=== PATIENT | male | born 1965 | race Caucasian/White ===

== ENCOUNTER 2017-01-04 15:03 | Inpatient (IN) | payer OTHER ==
[2017-01-04 16:47] VITALS: BMI 28.0
--- NOTE | 2017-01-04 18:50 | HP ---
COWS - Scale Resting Pulse: 0= [place] 80 or Below Sweatin= Chills/Flushing Restless Observation: 1= Difficult to Sit Still Pupil Size: 1= Pupils >than Normal Bone or Joint Aches: 2= Severe Diffuse Aches Runny Nose/ Eye Tearin= Runny Nose/Eyes GI Upset > 30mins: 1= Stomach Cramp Tremor Observation: 1= Tremor [place], Not Seen Yawning Observation: 1= 1-2x During Session Anxiety or Irritability: 2=Irritable/Anxious Goose Flesh Skin: 3=Piloerection COWS Score: 15 Admission ROS S - HPI Chief Complaint: withdrawal sx Allergies/Adverse Reactions: Allergies Allergy/AdvReac Type Severity Reaction Status Date / Time fish derived [Fish derived] Allergy Mild Verified 01/04/17 18:20 No Known Drug Allergies Allergy Verified 01/04/17 18:20 mushroom AdvReac Intermediate Vomiting Verified 01/04/17 18:20 History of Present Illness: 51 years old male with long history of opiate and nicotine dependence has asthma and bipolar ii is admitted to detox Exam Limitations: No Limitations - Ebola screening Have you traveled outside of the country in the last 21 days: No Have you had contact with anyone from an Ebola affected area: No Have you been sick,other than usual withdrawal symptoms: No Do you have a fever: No - Review of Systems Constitutional: Chills, Changes in sleep, Weight Stable EENT: reports: No Symptoms Reported Respiratory: reports: No Symptoms reported Cardiac: reports: No Symptoms Reported GI: reports: Nausea, Poor Fluid Intake, Indigestion, Abdominal cramping : reports: No Symptoms Reported Musculoskeletal: reports: Back Pain, Joint Pain, Muscle Pain, Neck Pain Integumentary: reports: Change in Color (inner elbows) Neuro: reports: Tremors Endocrine: reports: No Symptoms Reported Hematology: reports: No Symptoms Reported Psychiatric: reports: Judgement Intact, Mood/Affect Appropiate, Orientated x3 Other Systems: Reviewed and Negative Patient History - Patient Medical History Hx Anemia: No Hx Asthma: Yes (Pt is on MDI) Hx Chronic Obstructive Pulmonary Disease (COPD): No Hx Cancer: No Hx Cardiac Disorders: No Hx Congestive Heart Failure: No Hx Hypertension: No Hx Hypercholesterolemia: No Hx Pacemaker: No HX Cerebrovascular Accident: No Hx Seizures: No Hx Dementia: No Hx Diabetes: No Hx Gastrointestinal Disorders: Yes (HERNIA) Hx Liver Disease: Yes (HEP C) Hx Genitourinary Disorders: No Hx Sexually Transmitted Disorders: No Hx Renal Disease (ESRD): No Hx Thyroid Disease: No Hx Human Immunodeficiency Virus (HIV): No Hx Hepatitis C: Yes (1999) Hx Depression: No Hx Suicide Attempt: No (denies) Hx Bipolar Disorder: Yes (AND ANXIETY) Hx Schizophrenia: No - Patient Surgical History Past Surgical History: Yes Hx Neurologic Surgery: No Hx Cataract Extraction: No Hx Cardiac Surgery: No Hx Lung Surgery: No Hx Breast Surgery: No Hx Breast Biopsy: No Hx Abdominal Surgery: No Hx Appendectomy: Yes (AGE 10 YRS OLD.) Hx Cholecystectomy: No Hx Genitourinary Surgery: No Hx Orthopedic Surgery: No Anesthesia Reaction: No - PPD History Previous Implant?: Yes Documented Results: Negative w/proof Implanted On Prior [facility] Admission?: Yes Date: 06/03/16 Results: 0 mm PPD to be Administered?: No - Smoking Cessation Smoking history: Current every day smoker Have you smoked in the past 12 months: Yes Aproximately how many cigarettes per day: 10 Cigars Per Day: 0 Hx Chewing Tobacco Use: No Initiated information on smoking cessation: Yes 'Breaking Loose' booklet given: 01/04/17 - Substance & Tx. History Hx Alcohol Use: No Hx Substance Use: Yes Substance Use Type: Opiates Hx Substance Use Treatment: Yes - Substances Abused Heroin Route: Injection Frequency: Daily Amount used: 4 bags Age of first use: 36 Date of Last Use: 01/04/17 Family Disease History - Family Disease History Family Disease History: Heart Disease: Mother (HIV/LIVER TRANSPLANT WAITING), [place] : Father (LUNG / BRAIN 1999), Other: Mother, Brother (SUICIDE ) Admission Physical Exam S - Vital Signs Vital Signs: Vital Signs - 24 hr 01/04/17 16:45 Temperature 97.2 F L Pulse Rate 73 Respiratory 20 Rate Blood Pressure 127/78 - Physical General Appearance: Yes: Nourished, Appropriately Dressed, Mild Distress, Tremorous, Irritable, Sweating, Anxious HEENTM: Yes: Hearing grossly Normal, Normal ENT Inspection, Normocephalic, Normal Voice Respiratory: Yes: Chest Non-Tender, Lungs Clear, Normal Breath Sounds, No Respiratory Distress, No Accessory Muscle Use Neck: Yes: Supple, Trachea in good position Breast: Yes: Breasts Symetrical Cardiology: Yes: Regular Rhythm, Regular Rate, S1, S2 Abdominal: Yes: Non Tender, Soft Genitourinary: Yes: Within Normal Limits Back: Yes: Normal Inspection Musculoskeletal: Yes: full range of Motion, Gait Steady, Back pain, Muscle Pain Extremities: Yes: Normal Range of Motion, Non-Tender, Tremors Neurological: Yes: Fully Oriented, Alert, Motor Strength 5/5, Normal Response Integumentary: Yes: Warm, Track Whitaker Lymphatic: Yes: Within Normal Limits - Diagnostic (1) Asthma Current Visit: Yes Status: Acute Qualifiers: Asthma severity: mild intermittent Asthma complication type: with status asthmaticus Qualified Code(s): J45.22 - Mild intermittent asthma with status asthmaticus (2) Hepatitis C Current Visit: Yes Status: Chronic Qualifiers: Viral hepatitis chronicity: carrier Qualified Code(s): Z22.52 - Carrier of viral hepatitis C (3) Nicotine dependence Current Visit: Yes Status: Acute Qualifiers: Nicotine product type: cigarettes Substance use status: in withdrawal Qualified Code(s): F17.213 - Nicotine dependence, cigarettes, with withdrawal (4) Opioid dependence with withdrawal Current Visit: Yes Status: Acute (5) Tooth caries Current Visit: Yes Status: Acute Comment: lidocaine viscous Cleared for Admission [facility] - Detox or Rehab [facility] Level of Care: Medically Managed Detox Regimen/Protocol: Methadone [facility] Breath Alcohol Content Breath Alcohol Content: 0 Urine Drug Screen - Results Drug Screen Negative: No Urine Drug Screen Results: OPI-Opiates, OXY-Oxycodone
[2017-01-04] MEDS ORDERED: MENTHOL/PHENOL 1 EACH UD MM PRN (18:55)
[2017-01-04] MEDS ORDERED: IBUPROFEN 400 MG TABLET (FP) PO PRN (18:55)
[2017-01-04] MEDS ORDERED: guaiFENesin/D-METHORPHAN HB 10 ML UNIT-DOSE CUPS PO PRN (18:55)
[2017-01-04] MEDS ORDERED: ACETAMINOPHEN 325 MG TABLET (FP) PO PRN (18:55)
[2017-01-04] MEDS ORDERED: METHADONE HCL 10 MG TABLET (FOR DETOX USE ONLY) PO ONE ×2 (18:55→23:00)
[2017-01-04] MEDS ORDERED: MAG HYDROX/AL HYDROX/SIMETH 30 ML UNIT-DOSE CUP PO PRN (18:55)
[2017-01-04] MEDS ORDERED: diphenhydrAMINE HCL 50 MG CAPSULE PO PRN (18:55)
[2017-01-04] MEDS ORDERED: diazePAM 5 MG TABLET PO PRN (18:55)
[2017-01-04] MEDS ORDERED: MAGNESIUM CITRATE 300 ML BOTTLE PO PRN (18:55)
[2017-01-04] MEDS ORDERED: MAGNESIUM HYDROX 2400MG/30ML ORAL SUSPENSION 30 ML CUP PO PRN (18:55)
[2017-01-04] MEDS ORDERED: LOPERAMIDE HCL 2 MG CAPSULE PO PRN (18:55)
[2017-01-04] MEDS ORDERED: P-EPHED 60MG/TRIPROLIDI 2.5MG TABLET PO PRN (18:55)
[2017-01-04] MEDS ORDERED: ALBUTEROL SO4 6.7 GM HFA INHALER IH PRN (18:56)
[2017-01-04] MEDS ORDERED: LIDOCAINE VISCOUS 2% ORAL/TOP 20 ML UNIT-DOSE CUP MM PRN (18:56)
[2017-01-04] MEDS: THIAMINE HCL 100 MG TABLET (FP) PO SCH (22:14)
[2017-01-04 22:36] LABS: URINE APPEARANCE SLCLOUDY; URINE BILIRUBIN NEGATIVE (NEGATIVE); URINE BLOOD NEGATIVE (NEGATIVE); URINE GLUCOSE (UA) NEGATIVE (NEGATIVE); URINE KETONE NEGATIVE (NEGATIVE); URINE LEUK ESTERASE NEGATIVE (NEGATIVE); URINE NITRITE NEGATIVE (NEGATIVE); URINE PROTEIN NEGATIVE (NEGATIVE); URINE UROBILINOGEN NEGATIVE E.U./dl (0.2-1.0)
[2017-01-04 22:37] LABS: URINE COLOR YELLOW
[2017-01-05] MEDS ORDERED: METHADONE HCL 10 MG TABLET (FOR DETOX USE ONLY) PO ONE (10:00)
--- NOTE | 2017-01-05 10:15 | PN ---
BHS COWS - Scale Resting Pulse: 0= [place] 80 or Below Sweatin= Chills/Flushing Restless Observation: 3= Extraneous Movement Pupil Size: 1= Pupils >than Normal Bone or Joint Aches: 2= Severe Diffuse Aches Runny Nose/ Eye Tearin= Runny Nose/Eyes GI Upset > 30mins: 3= Vomiting/Diarrhea Tremor Observation of Outstretched Hands: 2= Slight Tremor Visible Yawning Observation: 1= 1-2x During Session Anxiety or Irritability: 2=Irritable/Anxious Goose Flesh Skin: 0=Smooth Skin COWS Score: 17 BHS Progress Note (SOAP) Subjective: ALERT,IRRITABLE,ANXIOUS,INTERRUPTED SLEEP,TREMOR,PAIN IN THE BODY AND BACK Objective: 01/05/17 10:14 Vital Signs Temperature 97.9 F 01/05/17 09:47 Pulse Rate 69 01/05/17 09:47 Respiratory Rate 18 01/05/17 09:47 Blood Pressure 121/78 01/05/17 09:47 O2 Sat by Pulse Oximetry (%) 01/05/17 10:14 EKG NSR Laboratory Last Values Urine Color Yellow 01/04/17 22:00 Urine Appearance Slcloudy 01/04/17 22:00 Urine pH 5.0 (5.0-8.0) 01/04/17 22:00 Ur Specific [place] 1.025 (1.001-1.035) 01/04/17 22:00 Urine Protein Negative (NEGATIVE) 01/04/17 22:00 Urine Glucose (UA) Negative (NEGATIVE) 01/04/17 22:00 Urine Ketones Negative (NEGATIVE) 01/04/17 22:00 Urine Blood Negative (NEGATIVE) 01/04/17 22:00 Urine Nitrite Negative (NEGATIVE) 01/04/17 22:00 Urine Bilirubin Negative (NEGATIVE) 01/04/17 22:00 Urine Urobilinogen Negative E.U./dl (0.2-1.0) 01/04/17 22:00 Ur Leukocyte Esterase Negative (NEGATIVE) 01/04/17 22:00 LABS PENDING Assessment: 01/05/17 10:15 WITHDRAWAL SYMPTOM Plan: CONTINUE DETOX
[2017-01-05] MEDS: PRENATAL VITAMINS W/ FOLIC ACID TABLET (FP) PO SCH (10:29)
[2017-01-05 10:36] LABS: MCH 29.4 pg (25.7-33.7); MCHC 32.8 g/dl (32.0-35.9); MEAN CELL VOLUME 89.6 fl (80-96); MEAN PLT VOLUME 9.1 fl (7.5-11.1); PLATELET COUNT 195 K/MM3 (134-434); WHITE BLOOD COUNT 5.8 K/mm3 (4.0-10.0)
--- NOTE | 2017-01-05 10:46 | CONSULT ---
[facility] Psychiatric Consult - Data Date of interview: 01/05/17 Admission source: [facility] Identifying data: Readmission to [facility] for this 51 y/o male seeking detox treatment on for heroin and dependence.Patient is single, a father of two,domiciled,unemployed and supported on SSI benefits.Information is extracted from my note of 07/28/16.Mr Putnam is hostile and uncooperative. " I don't need and I don't want to talk to a psychiatrist." Substance Abuse History: Urine Drug Screen Results: OPI-Opiates, OXY- Oxycodone.Noted. - Smoking Cessation. Smoking history: Current every day smoker. Have you smoked in the past 12 months: Yes. Aproximately how many cigarettes per day: 10. Cigars Per Day: 0. Hx Chewing Tobacco Use: No. Initiated information on smoking cessation: Yes. 'Breaking Loose' booklet given : 01/04/17. - Substance & Tx. History. Hx Alcohol Use: No. Hx Substance Use: Yes. Substance Use Type: Opiates. Hx Substance Use Treatment: Yes. - Substances Abused. Heroin. Route: Injection. Frequency: Daily. Amount used: 4 bags. Age of first use: 36. Date of Last Use: 01/04/17. Obtained from the [facility] report.Patient refuses to provide information regarding his pattern of substance use. Additional Comment: Mr Putnam has declared that he has no intention to answer questions.Patient is irritable,dismissive of staff and indifferent to care.He is invested in sabotaging his plan of care.Psychiatric interview cannot be conducted.Nurse in charge is made aware.
[2017-01-05 11:04] LABS: ALBUMIN 3.6 g/dl (3.4-5.0); ALK PHOS 104 U/L (45-117); ANION GAP 9 (8-16); BILIRUBIN,TOTAL 0.4 mg/dL (0.2-1.0); CALCIUM 9.2 mg/dL (8.5-10.1); CO2 27 mmol/L (21-32); CREATININE 0.7 mg/dL (0.7-1.3); GLUCOSE,RANDOM 87 mg/dL (74-106); SGOT/AST 28 U/L (15-37); SGPT/ALT 36 U/L (12-78); TOT PROT 7.3 g/dl (6.4-8.2)
[2017-01-05] MEDS: THIAMINE HCL 100 MG TABLET (FP) PO SCH (22:55)
[2017-01-06] MEDS ORDERED: METHADONE HCL 5 MG TABLET (FOR DETOX USE ONLY) PO ONE (10:00)
[2017-01-06] MEDS: PRENATAL VITAMINS W/ FOLIC ACID TABLET (FP) PO SCH (10:17)
--- NOTE | 2017-01-06 10:27 | PN ---
BHS COWS - Scale Resting Pulse: 4= [place] > 121 Sweatin= Chills/Flushing Restless Observation: 3= Extraneous Movement Pupil Size: 1= Pupils >than Normal Bone or Joint Aches: 2= Severe Diffuse Aches Runny Nose/ Eye Tearin= Runny Nose/Eyes GI Upset > 30mins: 2= Nausea/Diarrhea Tremor Observation of Outstretched Hands: 2= Slight Tremor Visible Yawning Observation: 1= 1-2x During Session Anxiety or Irritability: 2=Irritable/Anxious Goose Flesh Skin: 0=Smooth Skin COWS Score: 20 BHS Progress Note (SOAP) Subjective: alert,irritable,anxious,interrupted sleep,tremor,pain in the body and back, nausea Objective: 01/06/17 10:25 Vital Signs Temperature 97.5 F L 01/06/17 09:25 Pulse Rate 133 H 01/06/17 09:25 Respiratory Rate 18 01/06/17 09:25 Blood Pressure 125/84 01/06/17 09:25 O2 Sat by Pulse Oximetry (%) Laboratory Last Values WBC 5.8 K/mm3 (4.0-10.0) 01/05/17 07:15 RBC 4.89 M/mm3 (4.00-5.60) 01/05/17 07:15 Hgb 14.4 GM/dL (11.7-16.9) 01/05/17 07:15 Hct 43.8 % (35.4-49) 01/05/17 07:15 MCV 89.6 fl (80-96) 01/05/17 07:15 MCHC 32.8 g/dl (32.0-35.9) 01/05/17 07:15 RDW 14.0 % (11.9-15.9) 01/05/17 07:15 Plt Count 195 K/MM3 (134-434) 01/05/17 07:15 MPV 9.1 fl (7.5-11.1) 01/05/17 07:15 Sodium 140 mmol/L (136-145) 01/05/17 07:15 Potassium 4.4 mmol/L (3.5-5.1) 01/05/17 07:15 Chloride 104 mmol/L (98-107) 01/05/17 07:15 Carbon Dioxide 27 mmol/L (21-32) 01/05/17 07:15 Anion Gap 9 (8-16) 01/05/17 07:15 BUN 14 mg/dL (7-18) D 01/05/17 07:15 Creatinine 0.7 mg/dL (0.7-1.3) 01/05/17 07:15 Creat Clearance w eGFR > 60 (>60) 01/05/17 07:15 Random Glucose 87 mg/dL (74-106) 01/05/17 07:15 Calcium 9.2 mg/dL (8.5-10.1) 01/05/17 07:15 Total Bilirubin 0.4 mg/dL (0.2-1.0) 01/05/17 07:15 AST 28 U/L (15-37) D 01/05/17 07:15 ALT 36 U/L (12-78) 01/05/17 07:15 Alkaline Phosphatase 104 U/L (45-117) 01/05/17 07:15 Total Protein 7.3 g/dl (6.4-8.2) 01/05/17 07:15 Albumin 3.6 g/dl (3.4-5.0) 01/05/17 07:15 Urine Color Yellow 01/04/17 22:00 Urine Appearance Slcloudy 01/04/17 22:00 Urine pH 5.0 (5.0-8.0) 01/04/17 22:00 Ur Specific [place] 1.025 (1.001-1.035) 01/04/17 22:00 Urine Protein Negative (NEGATIVE) 01/04/17 22:00 Urine Glucose (UA) Negative (NEGATIVE) 01/04/17 22:00 Urine Ketones Negative (NEGATIVE) 01/04/17 22:00 Urine Blood Negative (NEGATIVE) 01/04/17 22:00 Urine Nitrite Negative (NEGATIVE) 01/04/17 22:00 Urine Bilirubin Negative (NEGATIVE) 01/04/17 22:00 Urine Urobilinogen Negative E.U./dl (0.2-1.0) 01/04/17 22:00 Ur Leukocyte Esterase Negative (NEGATIVE) 01/04/17 22:00 RPR Titer Nonreactive (NONREACTIVE) 01/05/17 07:15 01/06/17 10:26 Assessment: 01/06/17 10:25 withdrawal symptom 01/06/17 10:26 Plan: continue detox
[2017-01-06] MEDS: THIAMINE HCL 100 MG TABLET (FP) PO SCH (22:55)
--- NOTE | 2017-01-07 00:49 | EKG ---
Test Reason : Blood Pressure : / mmHG Vent. Rate : 068 BPM Atrial Rate : 068 BPM P-R Int : 152 ms QRS Dur : 082 ms QT Int : 384 ms P-R-T Axes : 055 066 037 degrees QTc Int : 408 ms NORMAL SINUS RHYTHM POSSIBLE LEFT ATRIAL ENLARGEMENT BORDERLINE ECG WHEN COMPARED WITH ECG OF 29-OCT-2016 14:57, NO SIGNIFICANT CHANGE WAS FOUND Confirmed by ADAM RAYA MD ([id number]) on 01/07/2017 12:49:27 AM Referred By: Confirmed By:ADAM RAYA MD
[2017-01-07] MEDS ORDERED: METHADONE HCL 5 MG TABLET (FOR DETOX USE ONLY) PO ONE (10:00)
[2017-01-07] MEDS: PRENATAL VITAMINS W/ FOLIC ACID TABLET (FP) PO SCH (10:27)
--- NOTE | 2017-01-07 11:28 | PN ---
BHS Progress Note (SOAP) Subjective: ALERT,IRRITABLE,ANXIOUS,INTERRUPTED SLEEP,TREMOR,PAIN IN THE BODY AND BACK Objective: 01/07/17 11:27 Vital Signs Temperature 96.6 F L 01/07/17 10:00 Pulse Rate 73 01/07/17 10:00 Respiratory Rate 18 01/07/17 10:00 Blood Pressure 126/80 01/07/17 10:00 O2 Sat by Pulse Oximetry (%) Assessment: 01/07/17 11:28 WITHDRAWAL SYMPTOM Plan: CONTINUE DETOX
[2017-01-07] MEDS: THIAMINE HCL 100 MG TABLET (FP) PO SCH (23:18)
[2017-01-08] MEDS: PRENATAL VITAMINS W/ FOLIC ACID TABLET (FP) PO SCH (10:13)
[2017-01-08] MEDS: METHADONE HCL 10 MG TABLET (FOR DETOX USE ONLY) PO ONE ×2 (10:14→11:12)
--- NOTE | 2017-01-08 12:01 | PN ---
BHS Progress Note (SOAP) Subjective: interrupted sleep, sweats Objective: 01/08/17 12:00 Vital Signs Temperature 97.9 F 01/08/17 09:48 Pulse Rate 67 01/08/17 09:48 Respiratory Rate 18 01/08/17 09:48 Blood Pressure 116/52 01/08/17 09:48 O2 Sat by Pulse Oximetry (%) pt aox3 in nad ambulating Assessment: 01/08/17 12:00 withdrawl sx;s Plan: cont. detox increase fluids d/c at 7am
[2017-01-08] MEDS: THIAMINE HCL 100 MG TABLET (FP) PO SCH (22:37)
[2017-01-09] MEDS ORDERED: METHADONE HCL 5 MG TABLET (FOR DETOX USE ONLY) PO ONE (06:00)
[2017-01-09 06:05] VITALS: TEMP 98.2
--- NOTE | 2017-01-09 08:54 | DS ---
[facility] Detox Discharge Summary Admission Date: 01/04/17 Discharge Date: 01/09/17 - History Present History: Cocaine Dependence, Opioid Dependence - Physical Exam Results Vital Signs: Vital Signs Temperature 98.2 F 01/09/17 06:03 Pulse Rate 53 L 01/09/17 06:03 Respiratory Rate 16 01/09/17 06:03 Blood Pressure 97/61 01/09/17 06:03 O2 Sat by Pulse Oximetry (%) - Treatment Hospital Course: Detox Protocol Followed, Detoxed Safely, Responded well, Discharged Condition Good - Medication Discharge Medications: Ambulatory Orders Albuterol Sulfate Inhaler - [Ventolin Hfa Inhaler -] 2 inh PO Q4H PRN 09/06/16 - Diagnosis (1) Asthma Current Visit: Yes Status: Acute Qualifiers: Asthma severity: mild intermittent Asthma complication type: uncomplicated Qualified Code(s): J45.20 - Mild intermittent asthma, uncomplicated (2) Nicotine dependence Current Visit: Yes Status: Acute Qualifiers: Nicotine product type: cigarettes Substance use status: in withdrawal Qualified Code(s): F17.213 - Nicotine dependence, cigarettes, with withdrawal (3) Opioid dependence with withdrawal Current Visit: Yes Status: Acute (4) Tooth caries Current Visit: Yes Status: Acute (5) Hepatitis C Current Visit: Yes Status: Chronic Qualifiers: Viral hepatitis chronicity: carrier Qualified Code(s): Z22.52 - Carrier of viral hepatitis C (6) Bipolar 1 disorder, depressed Current Visit: No Status: Chronic (7) Cocaine dependence Current Visit: No Status: Chronic Qualifiers: Substance use status: uncomplicated Qualified Code(s): F14.20 - Cocaine dependence, uncomplicated - AMA Did Patient Leave Against Medical Advice: No
[2017-01-09 09:52] VITALS: BP 121/57; PULSE 76
== END 2017-01-09 09:02 | disposition home or self-care (01) | DRG 773 ==
LOC: YASAS 15:03 → Y6N 19:45
PROVIDERS: ADMIT Internal Medicine; ATTEND Internal Medicine
PROC: HZ2ZZZZ Detoxification Services for Substance Abuse Treatment (ICD-10-PCS; principal; 2017-01-04)
DX: F11.23 Opioid dependence with withdrawal (principal); F17.210 Nicotine dependence, cigarettes, uncomplicated; F31.9 Bipolar disorder, unspecified; J45.20 Mild intermittent asthma, uncomplicated; B18.2 Chronic viral hepatitis C; K02.9 Dental caries, unspecified
CPT/HCPCS: 36415; 80053; 81003; 85027; 86593; 93005; 93010

== ENCOUNTER 2017-02-21 09:59 | Inpatient (IN) | payer OTHER ==
[2017-02-21 11:55] VITALS: BMI 26.5
--- NOTE | 2017-02-21 13:57 | HP ---
COWS - Scale Resting Pulse: 0= [place] 80 or Below Sweatin=Flushed/Facial Moisture Restless Observation: 1= Difficult to Sit Still Pupil Size: 1= Pupils >than Normal Bone or Joint Aches: 2= Severe Diffuse Aches Runny Nose/ Eye Tearin= Nasal Congestion GI Upset > 30mins: 0= None Tremor Observation: 2= Slight Tremor Visible Yawning Observation: 0= None Anxiety or Irritability: 2=Irritable/Anxious Goose Flesh Skin: 3=Piloerection COWS Score: 14 Admission ROS [facility] Chief Complaint: "I need to get off of this garbage." Pt. is here to Detox from Heroin. Allergies/Adverse Reactions: Allergies Allergy/AdvReac Type Severity Reaction Status Date / Time fish derived [Fish derived] Allergy Mild Verified 02/21/17 12:29 No Known Drug Allergies Allergy Verified 02/21/17 12:29 mushroom AdvReac Intermediate Vomiting Verified 02/21/17 12:29 History of Present Illness: Pt. is a 51 YO male here to Detox from Heroin. Pt. has had several previous Detox admissions at [facility]. Exam Limitations: No Limitations - Ebola screening Have you traveled outside of the country in the last 21 days: No Have you had contact with anyone from an Ebola affected area: No Have you been sick,other than usual withdrawal symptoms: No Do you have a fever: No - Review of Systems Constitutional: Diaphoresis, Malaise, Unintentional Wgt. Loss (Lost approx. 5 lbs. over the last couple of months.) EENT: reports: Other (Pt. has upper denture.) Respiratory: reports: SOB with Exertion Cardiac: reports: No Symptoms Reported GI: reports: No Symptoms Reported : reports: No Symptoms Reported Musculoskeletal: reports: Back Pain Integumentary: reports: No Symptoms Reported Neuro: reports: Tremors Endocrine: reports: No Symptoms Reported Hematology: reports: No Symptoms Reported Psychiatric: reports: Judgement Intact, Mood/Affect Appropiate, Orientated x3, Agitated, Anxious, Depressed (Bi-Polar Disorder.) Other Systems: Reviewed and Negative Patient History - Patient Medical History Hx Anemia: No Hx Asthma: Yes (Uses Albuterol Inhaler.) Hx Chronic Obstructive Pulmonary Disease (COPD): No Hx Cancer: No Hx Cardiac Disorders: No Hx Congestive Heart Failure: No Hx Hypertension: No Hx Hypercholesterolemia: No Hx Pacemaker: No HX Cerebrovascular Accident: No Hx Seizures: No Hx Dementia: No Hx Diabetes: No Hx Gastrointestinal Disorders: No Hx Liver Disease: Yes (HEP C) Hx Genitourinary Disorders: No Hx Sexually Transmitted Disorders: No Hx Renal Disease (ESRD): No Hx Thyroid Disease: No Hx Human Immunodeficiency Virus (HIV): No (Last Tested: approx. 2 months ago: NEGATIVE.) Hx Hepatitis C: Yes (Dx'd in 1999. No treatment.) Hx Depression: Yes (Previously took medication; no longer wishes to.) Hx Suicide Attempt: No (PATIENT DENIES CURRENT SI / HI.) Hx Bipolar Disorder: Yes (AND ANXIETY; Previously took medication; no longer wishes to.) Hx Schizophrenia: No - Patient Surgical History Past Surgical History: Yes Hx Neurologic Surgery: No Hx Cataract Extraction: No Hx Cardiac Surgery: No Hx Lung Surgery: No Hx Breast Surgery: No Hx Breast Biopsy: No Hx Abdominal Surgery: No Hx Appendectomy: Yes (AGE 10 YRS OLD.) Hx Cholecystectomy: No Hx Genitourinary Surgery: No Hx Orthopedic Surgery: No Anesthesia Reaction: No - PPD History Previous Implant?: Yes Documented Results: Negative w/proof Implanted On Prior [facility] Admission?: Yes Date: 06/03/16 Results: 0 mm PPD to be Administered?: No - Reproductive History Patient is a Female of Child Bearing Age (11 -55 yrs old): No (PATIENT IS MALE.) - Smoking Cessation Smoking history: Current every day smoker Have you smoked in the past 12 months: Yes Aproximately how many cigarettes per day: 10 Cigars Per Day: 0 Hx Chewing Tobacco Use: No Initiated information on smoking cessation: Yes 'Breaking Loose' booklet given: 02/21/17 (GIVEN ON UNIT.) - Substance & Tx. History Hx Alcohol Use: No Hx Substance Use: Yes Substance Use Type: Heroin, Marijuana Hx Substance Use Treatment: Yes (Previous Detox admissions At [facility].) - Substances Abused Heroin Route: Injection Frequency: Daily Amount used: 3 bags Age of first use: 37 Date of Last Use: 02/21/17 Marijuana Route: Smoking Frequency: 1-2 times per week Amount used: 2 joints Age of first use: 14 Date of Last Use: 02/20/17 Family Disease History - Family Disease History Family Disease History: Heart Disease: Mother (HIV/LIVER TRANSPLANT WAITING), [place] : Father (LUNG / BRAIN 2000), Other: Mother, Brother (SUICIDE ) Admission Physical Exam S - Vital Signs Vital Signs: Vital Signs - 24 hr 02/21/17 11:51 Temperature 97 F L Pulse Rate 60 Respiratory 20 Rate Blood Pressure 120/77 - Physical General Appearance: Yes: Nourished, Appropriately Dressed, Mild Distress, Tremorous, Irritable, Anxious HEENTM: Yes: Hearing grossly Normal, Normocephalic, Normal Voice, ONOFRE, Pharynx Normal Respiratory: Yes: Chest Non-Tender, Lungs Clear, No Respiratory Distress Neck: Yes: No masses,lesions,Nodules, Supple, Trachea in good position Breast: Yes: Breast Exam Deferred Cardiology: Yes: Regular Rhythm, Regular Rate, S1, S2 Abdominal: Yes: Normal Bowel Sounds, Non Tender, Flat, Soft Genitourinary: Yes: Within Normal Limits Back: Yes: Decreased Range of Motion Musculoskeletal: Yes: Gait Steady, Back pain Extremities: Yes: Normal Range of Motion, Non-Tender, Tremors Neurological: Yes: Fully Oriented, Alert, Normal Mood/Affect, Normal Response Integumentary: Yes: Normal Color, Warm, Diaphoresis, Track Whitaker (On cubital area of right arm and on right forearm. Swelling noted in cubital area.) Lymphatic: Yes: Within Normal Limits - Diagnostic (1) Asthma Current Visit: Yes Status: Chronic Qualifiers: Asthma severity: mild intermittent Asthma complication type: uncomplicated Qualified Code(s): J45.20 - Mild intermittent asthma, uncomplicated (2) Nicotine dependence Current Visit: Yes Status: Chronic Qualifiers: Nicotine product type: cigarettes Substance use status: uncomplicated Qualified Code(s): F17.210 - Nicotine dependence, cigarettes, uncomplicated (3) Opioid dependence with withdrawal Current Visit: Yes Status: Acute (4) Hepatitis C Current Visit: Yes Status: Chronic Qualifiers: Viral hepatitis chronicity: chronic Qualified Code(s): - (5) Cannabis dependence, uncomplicated Current Visit: Yes Status: Acute (6) Bipolar disorder Current Visit: Yes Status: Chronic Qualifiers: Active/Remission status: remission status unspecified Qualified Code (s): F31.9 - Bipolar disorder, unspecified Cleared for Admission S - Detox or Rehab S Level of Care: Medically Managed Detox Regimen/Protocol: Methadone [facility] Breath Alcohol Content Breath Alcohol Content: 0 Urine Drug Screen - Results Drug Screen Negative: No Urine Drug Screen Results: THC-Marijuana, OPI-Opiates
[2017-02-21] MEDS ORDERED: MAGNESIUM HYDROX 2400MG/30ML ORAL SUSPENSION 30 ML CUP PO PRN (14:23)
[2017-02-21] MEDS ORDERED: diphenhydrAMINE HCL 50 MG CAPSULE PO PRN (14:23)
[2017-02-21] MEDS ORDERED: MENTHOL/PHENOL 1 EACH UD MM PRN (14:23)
[2017-02-21] MEDS ORDERED: IBUPROFEN 400 MG TABLET (FP) PO PRN (14:23)
[2017-02-21] MEDS ORDERED: LOPERAMIDE HCL 2 MG CAPSULE PO PRN (14:23)
[2017-02-21] MEDS ORDERED: diazePAM 5 MG TABLET PO PRN (14:23)
[2017-02-21] MEDS ORDERED: guaiFENesin/D-METHORPHAN HB 10 ML UNIT-DOSE CUPS PO PRN (14:23)
[2017-02-21] MEDS ORDERED: ACETAMINOPHEN 325 MG TABLET (FP) PO PRN (14:23)
[2017-02-21] MEDS ORDERED: MAGNESIUM CITRATE 300 ML BOTTLE PO PRN (14:23)
[2017-02-21] MEDS ORDERED: MAG HYDROX/AL HYDROX/SIMETH 30 ML UNIT-DOSE CUP PO PRN (14:23)
[2017-02-21] MEDS ORDERED: hydrOXYzine PAMOATE 50 MG CAPSULE (FP) PO PRN (14:23)
[2017-02-21] MEDS ORDERED: P-EPHED 60MG/TRIPROLIDI 2.5MG TABLET PO PRN (14:23)
[2017-02-21] MEDS ORDERED: ALBUTEROL SO4 6.7 GM HFA INHALER IH PRN (14:27)
[2017-02-21] MEDS ORDERED: METHADONE HCL 10 MG TABLET (FOR DETOX USE ONLY) PO ONE ×2 (14:56→23:00)
[2017-02-21 20:58] LABS: URINE APPEARANCE CLEAR; URINE BILIRUBIN NEGATIVE (NEGATIVE); URINE BLOOD NEGATIVE (NEGATIVE); URINE COLOR YELLOW; URINE GLUCOSE (UA) NEGATIVE (NEGATIVE); URINE KETONE NEGATIVE (NEGATIVE); URINE LEUK ESTERASE NEGATIVE (NEGATIVE); URINE NITRITE NEGATIVE (NEGATIVE); URINE PROTEIN NEGATIVE (NEGATIVE); URINE UROBILINOGEN NEGATIVE E.U./dl (0.2-1.0)
[2017-02-21] MEDS: THIAMINE HCL 100 MG TABLET (FP) PO SCH (22:19)
[2017-02-21] MEDS: SULFAMETHOXAZOLE/TRIMETHOPRIM 800MG/160MG D.S. TABLET PO SCH (22:19)
[2017-02-21] MEDS: BACITRACIN 0.9 GM PACKET TP SCH (22:19)
--- NOTE | 2017-02-22 09:22 | EKG ---
Test Reason : Blood Pressure : / mmHG Vent. Rate : 061 BPM Atrial Rate : 061 BPM P-R Int : 146 ms QRS Dur : 086 ms QT Int : 380 ms P-R-T Axes : 049 062 027 degrees QTc Int : 382 ms NORMAL SINUS RHYTHM WHEN COMPARED WITH ECG OF 04-JAN-2017 20:15, NO SIGNIFICANT CHANGE WAS FOUND Confirmed by FABIAN NARAYANAN MD ([id number]) on 02/22/2017 9:22:08 AM Referred By: Confirmed By:FABIAN NARAYANAN MD
--- NOTE | 2017-02-22 09:30 | CONSULT ---
[facility] Psychiatric Consult - Data Date of interview: 02/22/17 Admission source: [facility] Identifying data: Approached,at bedside,for psychiatric interview.Mr [place] refused.Nursing staff is made aware.
[2017-02-22 09:58] LABS: MCH 29.4 pg (25.7-33.7); MCHC 33.3 g/dl (32.0-35.9); MEAN CELL VOLUME 88.2 fl (80-96); MEAN PLT VOLUME 9.1 fl (7.5-11.1); PLATELET COUNT 173 K/MM3 (134-434); RDW 13.8 % (11.9-15.9); WHITE BLOOD COUNT 6.3 K/mm3 (4.0-10.0)
[2017-02-22] MEDS ORDERED: METHADONE HCL 10 MG TABLET (FOR DETOX USE ONLY) PO ONE (10:00)
[2017-02-22] MEDS: PRENATAL VITAMINS W/ FOLIC ACID TABLET (FP) PO SCH (10:07)
[2017-02-22] MEDS: SULFAMETHOXAZOLE/TRIMETHOPRIM 800MG/160MG D.S. TABLET PO SCH ×2 (10:08→23:17)
[2017-02-22] MEDS: BACITRACIN 0.9 GM PACKET TP SCH ×2 (10:08→23:17)
[2017-02-22 10:31] LABS: ALBUMIN 3.6 g/dl (3.4-5.0); ALK PHOS 87 U/L (45-117); ANION GAP 11 (8-16); BILIRUBIN,TOTAL 0.5 mg/dL (0.2-1.0); CALCIUM 8.9 mg/dL (8.5-10.1); CO2 26 mmol/L (21-32); COCKROFT - GAULT 118.79; CREATININE 0.7 mg/dL (0.7-1.3); GLUCOSE,RANDOM 82 mg/dL (74-106); SGOT/AST 17 U/L (15-37); SGPT/ALT 19 U/L (12-78); TOT PROT 7.3 g/dl (6.4-8.2)
--- NOTE | 2017-02-22 15:07 | PN ---
BHS COWS - Scale Resting Pulse: 0= [place] 80 or Below Sweatin=Flushed/Facial Moisture Restless Observation: 1= Difficult to Sit Still Pupil Size: 0= Normal to Room Light Bone or Joint Aches: 1= Mild Discomfort Runny Nose/ Eye Tearin= Nasal Congestion GI Upset > 30mins: 1= Stomach Cramp Tremor Observation of Outstretched Hands: 2= Slight Tremor Visible Yawning Observation: 1= 1-2x During Session Anxiety or Irritability: 2=Irritable/Anxious Goose Flesh Skin: 0=Smooth Skin COWS Score: 11 BHS Progress Note (SOAP) Subjective: Anxiety,tremors,sweating,interrupted sleep,restless Objective: 02/22/17 15:06 Vital Signs - 8 hr 02/22/17 02/22/17 10:47 14:13 Temperature 97.1 F L 96.1 F L Pulse Rate 76 73 Respiratory 18 18 Rate Blood Pressure 114/79 116/76 Laboratory Tests 02/21/17 02/22/17 02/22/17 14:00 07:00 07:00 WBC 6.3 RBC 4.94 Hgb 14.5 Hct 43.5 MCV 88.2 MCHC 33.3 RDW 13.8 Plt Count 173 MPV 9.1 Sodium 140 Potassium 4.3 Chloride 103 Carbon Dioxide 26 Anion Gap 11 BUN 12 Creatinine 0.7 Creat Clearance w eGFR > 60 Random Glucose 82 Calcium 8.9 Total Bilirubin 0.5 D AST 17 D ALT 19 D Alkaline Phosphatase 87 Total Protein 7.3 Albumin 3.6 Urine Color Yellow Urine Appearance Clear Urine pH 5.0 Ur Specific [place] 1.020 Urine Protein Negative Urine Glucose (UA) Negative Urine Ketones Negative Urine Blood Negative Urine Nitrite Negative Urine Bilirubin Negative Urine Urobilinogen Negative Ur Leukocyte Esterase Negative RPR Titer 02/22/17 07:00 WBC RBC Hgb Hct MCV MCHC RDW Plt Count MPV Sodium Potassium Chloride Carbon Dioxide Anion Gap BUN Creatinine Creat Clearance w eGFR Random Glucose Calcium Total Bilirubin AST ALT Alkaline Phosphatase Total Protein Albumin Urine Color Urine Appearance Urine pH Ur Specific [place] Urine Protein Urine Glucose (UA) Urine Ketones Urine Blood Urine Nitrite Urine Bilirubin Urine Urobilinogen Ur Leukocyte Esterase RPR Titer Nonreactive labs noted Assessment: 02/22/17 15:06 Withdrawal sx. Plan: Continue detox
[2017-02-22] MEDS: THIAMINE HCL 100 MG TABLET (FP) PO SCH (23:17)
[2017-02-23] MEDS ORDERED: METHADONE HCL 5 MG TABLET (FOR DETOX USE ONLY) PO ONE (10:00)
[2017-02-23] MEDS: PRENATAL VITAMINS W/ FOLIC ACID TABLET (FP) PO SCH (10:16)
[2017-02-23] MEDS: BACITRACIN 0.9 GM PACKET TP SCH ×2 (10:17→22:50)
[2017-02-23] MEDS: SULFAMETHOXAZOLE/TRIMETHOPRIM 800MG/160MG D.S. TABLET PO SCH ×2 (10:17→22:50)
--- NOTE | 2017-02-23 15:05 | PN ---
BHS COWS - Scale Resting Pulse: 0= [place] 80 or Below Sweatin=Flushed/Facial Moisture Restless Observation: 1= Difficult to Sit Still Pupil Size: 0= Normal to Room Light Bone or Joint Aches: 2= Severe Diffuse Aches Runny Nose/ Eye Tearin= Runny Nose/Eyes GI Upset > 30mins: 2= Nausea/Diarrhea Tremor Observation of Outstretched Hands: 2= Slight Tremor Visible Yawning Observation: 1= 1-2x During Session Anxiety or Irritability: 2=Irritable/Anxious Goose Flesh Skin: 0=Smooth Skin COWS Score: 14 BHS Progress Note (SOAP) Subjective: Sweating,anxiety,tremors,interrupted sleep,restless,body aches Objective: 02/23/17 15:04 Vital Signs - 8 hr 02/23/17 02/23/17 09:43 14:11 Temperature 98.1 F 97.9 F Pulse Rate 79 60 Respiratory 18 18 Rate Blood Pressure 112/81 114/77 Laboratory Last Values WBC 6.3 K/mm3 (4.0-10.0) 02/22/17 07:00 RBC 4.94 M/mm3 (4.00-5.60) 02/22/17 07:00 Hgb 14.5 GM/dL (11.7-16.9) 02/22/17 07:00 Hct 43.5 % (35.4-49) 02/22/17 07:00 MCV 88.2 fl (80-96) 02/22/17 07:00 MCHC 33.3 g/dl (32.0-35.9) 02/22/17 07:00 RDW 13.8 % (11.9-15.9) 02/22/17 07:00 Plt Count 173 K/MM3 (134-434) 02/22/17 07:00 MPV 9.1 fl (7.5-11.1) 02/22/17 07:00 Sodium 140 mmol/L (136-145) 02/22/17 07:00 Potassium 4.3 mmol/L (3.5-5.1) 02/22/17 07:00 Chloride 103 mmol/L (98-107) 02/22/17 07:00 Carbon Dioxide 26 mmol/L (21-32) 02/22/17 07:00 Anion Gap 11 (8-16) 02/22/17 07:00 BUN 12 mg/dL (7-18) 02/22/17 07:00 Creatinine 0.7 mg/dL (0.7-1.3) 02/22/17 07:00 Creat Clearance w eGFR > 60 (>60) 02/22/17 07:00 Random Glucose 82 mg/dL (74-106) 02/22/17 07:00 Calcium 8.9 mg/dL (8.5-10.1) 02/22/17 07:00 Total Bilirubin 0.5 mg/dL (0.2-1.0) D 02/22/17 07:00 AST 17 U/L (15-37) D 02/22/17 07:00 ALT 19 U/L (12-78) D 02/22/17 07:00 Alkaline Phosphatase 87 U/L (45-117) 02/22/17 07:00 Total Protein 7.3 g/dl (6.4-8.2) 02/22/17 07:00 Albumin 3.6 g/dl (3.4-5.0) 02/22/17 07:00 Urine Color Yellow 02/21/17 14:00 Urine Appearance Clear 02/21/17 14:00 Urine pH 5.0 (5.0-8.0) 02/21/17 14:00 Ur Specific [place] 1.020 (1.001-1.035) 02/21/17 14:00 Urine Protein Negative (NEGATIVE) 02/21/17 14:00 Urine Glucose (UA) Negative (NEGATIVE) 02/21/17 14:00 Urine Ketones Negative (NEGATIVE) 02/21/17 14:00 Urine Blood Negative (NEGATIVE) 02/21/17 14:00 Urine Nitrite Negative (NEGATIVE) 02/21/17 14:00 Urine Bilirubin Negative (NEGATIVE) 02/21/17 14:00 Urine Urobilinogen Negative E.U./dl (0.2-1.0) 02/21/17 14:00 Ur Leukocyte Esterase Negative (NEGATIVE) 02/21/17 14:00 RPR Titer Nonreactive (NONREACTIVE) 02/22/17 07:00 labs noted Assessment: 02/23/17 15:04 Withdrawal sx. Plan: Continue detox
[2017-02-23] MEDS: THIAMINE HCL 100 MG TABLET (FP) PO SCH (22:50)
[2017-02-24] MEDS ORDERED: METHADONE HCL 5 MG TABLET (FOR DETOX USE ONLY) PO ONE (10:00)
[2017-02-24] MEDS ORDERED: METHADONE HCL 10 MG TABLET (FOR DETOX USE ONLY) PO ONE (10:00)
[2017-02-24] MEDS: PRENATAL VITAMINS W/ FOLIC ACID TABLET (FP) PO SCH (10:06)
[2017-02-24] MEDS: SULFAMETHOXAZOLE/TRIMETHOPRIM 800MG/160MG D.S. TABLET PO SCH ×2 (10:07→22:45)
[2017-02-24] MEDS: BACITRACIN 0.9 GM PACKET TP SCH ×2 (10:07→22:45)
--- NOTE | 2017-02-24 14:24 | PN ---
BHS Progress Note (SOAP) Subjective: Sweating,interrupted sleep,restless Objective: 02/24/17 14:23 Vital Signs - 8 hr 02/24/17 02/24/17 02/24/17 06:43 09:49 13:49 Temperature 97.2 F L 96.8 F L 96.8 F L Pulse Rate 61 74 63 Respiratory 16 18 18 Rate Blood Pressure 109/78 110/81 114/73 Laboratory Tests 02/21/17 02/22/17 02/22/17 14:00 07:00 07:00 WBC 6.3 RBC 4.94 Hgb 14.5 Hct 43.5 MCV 88.2 MCHC 33.3 RDW 13.8 Plt Count 173 MPV 9.1 Sodium 140 Potassium 4.3 Chloride 103 Carbon Dioxide 26 Anion Gap 11 BUN 12 Creatinine 0.7 Creat Clearance w eGFR > 60 Random Glucose 82 Calcium 8.9 Total Bilirubin 0.5 D AST 17 D ALT 19 D Alkaline Phosphatase 87 Total Protein 7.3 Albumin 3.6 Urine Color Yellow Urine Appearance Clear Urine pH 5.0 Ur Specific [place] 1.020 Urine Protein Negative Urine Glucose (UA) Negative Urine Ketones Negative Urine Blood Negative Urine Nitrite Negative Urine Bilirubin Negative Urine Urobilinogen Negative Ur Leukocyte Esterase Negative RPR Titer 02/22/17 07:00 WBC RBC Hgb Hct MCV MCHC RDW Plt Count MPV Sodium Potassium Chloride Carbon Dioxide Anion Gap BUN Creatinine Creat Clearance w eGFR Random Glucose Calcium Total Bilirubin AST ALT Alkaline Phosphatase Total Protein Albumin Urine Color Urine Appearance Urine pH Ur Specific [place] Urine Protein Urine Glucose (UA) Urine Ketones Urine Blood Urine Nitrite Urine Bilirubin Urine Urobilinogen Ur Leukocyte Esterase RPR Titer Nonreactive labs noted Assessment: 02/24/17 14:24 Withdrawal sx. Plan: Continue detox
[2017-02-24 22:08] VITALS: PULSE 66
[2017-02-24] MEDS: THIAMINE HCL 100 MG TABLET (FP) PO SCH (22:45)
[2017-02-25] MEDS ORDERED: METHADONE HCL 5 MG TABLET (FOR DETOX USE ONLY) PO ONE (06:00)
[2017-02-25 06:56] VITALS: BP 98/68; TEMP 96.2
--- NOTE | 2017-02-25 09:52 | DS ---
[facility] Detox Discharge Summary Admission Date: 02/21/17 Discharge Date: 02/25/17 - History Present History: Cannabis Dependence, Opioid Dependence Pertinent Past History: Asthma Hep C - Physical Exam Results Vital Signs: Vital Signs Temperature 96.2 F L 02/25/17 06:55 Pulse Rate 66 02/25/17 06:55 Respiratory Rate 18 02/25/17 06:55 Blood Pressure 98/68 02/25/17 06:55 O2 Sat by Pulse Oximetry (%) Pertinent Admission Physical Exam Findings: Withdrawal sx. Laboratory Last Values WBC 6.3 K/mm3 (4.0-10.0) 02/22/17 07:00 RBC 4.94 M/mm3 (4.00-5.60) 02/22/17 07:00 Hgb 14.5 GM/dL (11.7-16.9) 02/22/17 07:00 Hct 43.5 % (35.4-49) 02/22/17 07:00 MCV 88.2 fl (80-96) 02/22/17 07:00 MCHC 33.3 g/dl (32.0-35.9) 02/22/17 07:00 RDW 13.8 % (11.9-15.9) 02/22/17 07:00 Plt Count 173 K/MM3 (134-434) 02/22/17 07:00 MPV 9.1 fl (7.5-11.1) 02/22/17 07:00 Sodium 140 mmol/L (136-145) 02/22/17 07:00 Potassium 4.3 mmol/L (3.5-5.1) 02/22/17 07:00 Chloride 103 mmol/L (98-107) 02/22/17 07:00 Carbon Dioxide 26 mmol/L (21-32) 02/22/17 07:00 Anion Gap 11 (8-16) 02/22/17 07:00 BUN 12 mg/dL (7-18) 02/22/17 07:00 Creatinine 0.7 mg/dL (0.7-1.3) 02/22/17 07:00 Creat Clearance w eGFR > 60 (>60) 02/22/17 07:00 Random Glucose 82 mg/dL (74-106) 02/22/17 07:00 Calcium 8.9 mg/dL (8.5-10.1) 02/22/17 07:00 Total Bilirubin 0.5 mg/dL (0.2-1.0) D 02/22/17 07:00 AST 17 U/L (15-37) D 02/22/17 07:00 ALT 19 U/L (12-78) D 02/22/17 07:00 Alkaline Phosphatase 87 U/L (45-117) 02/22/17 07:00 Total Protein 7.3 g/dl (6.4-8.2) 02/22/17 07:00 Albumin 3.6 g/dl (3.4-5.0) 02/22/17 07:00 Urine Color Yellow 02/21/17 14:00 Urine Appearance Clear 02/21/17 14:00 Urine pH 5.0 (5.0-8.0) 02/21/17 14:00 Ur Specific [place] 1.020 (1.001-1.035) 02/21/17 14:00 Urine Protein Negative (NEGATIVE) 02/21/17 14:00 Urine Glucose (UA) Negative (NEGATIVE) 02/21/17 14:00 Urine Ketones Negative (NEGATIVE) 02/21/17 14:00 Urine Blood Negative (NEGATIVE) 02/21/17 14:00 Urine Nitrite Negative (NEGATIVE) 02/21/17 14:00 Urine Bilirubin Negative (NEGATIVE) 02/21/17 14:00 Urine Urobilinogen Negative E.U./dl (0.2-1.0) 02/21/17 14:00 Ur Leukocyte Esterase Negative (NEGATIVE) 02/21/17 14:00 RPR Titer Nonreactive (NONREACTIVE) 02/22/17 07:00 labs noted - Treatment Hospital Course: Detox Protocol Followed, Detoxed Safely, Responded well, Discharged Condition Good, Rehab Referral Accepted Patient has Accepted a Rehab Referral to: [facility] - Medication Discharge Medications: Ambulatory Orders Albuterol Sulfate Inhaler - [Ventolin Hfa Inhaler -] 2 inh PO Q4H PRN 09/06/16 - Diagnosis (1) Opioid dependence with withdrawal Current Visit: Yes Status: Acute (2) Asthma Current Visit: Yes Status: Chronic Qualifiers: Asthma severity: mild intermittent Asthma complication type: uncomplicated Qualified Code(s): J45.20 - Mild intermittent asthma, uncomplicated (3) Hepatitis C Current Visit: Yes Status: Chronic Qualifiers: Viral hepatitis chronicity: chronic (4) Cocaine dependence Current Visit: No Status: Chronic Qualifiers: Substance use status: uncomplicated Qualified Code(s): F14.20 - Cocaine dependence, uncomplicated - AMA Did Patient Leave Against Medical Advice: No
[2017-02-25] MEDS ORDERED: METHADONE HCL 10 MG TABLET (FOR DETOX USE ONLY) PO ONE (10:00)
[2017-02-26] MEDS ORDERED: METHADONE HCL 5 MG TABLET (FOR DETOX USE ONLY) PO ONE (06:00)
== END 2017-02-25 09:35 | disposition home or self-care (01) | DRG 773 ==
LOC: YASAS 09:59 → Y3N 13:45
PROVIDERS: ADMIT Internal Medicine; ATTEND Internal Medicine
PROC: HZ2ZZZZ Detoxification Services for Substance Abuse Treatment (ICD-10-PCS; principal; 2017-02-25)
DX: F11.23 Opioid dependence with withdrawal (principal); F14.20 Cocaine dependence, uncomplicated; F12.20 Cannabis dependence, uncomplicated; F31.9 Bipolar disorder, unspecified; J45.20 Mild intermittent asthma, uncomplicated; B18.2 Chronic viral hepatitis C
CPT/HCPCS: 36415; 80053; 81003; 85027; 86593; 93005; 93010

== ENCOUNTER 2021-11-12 09:45 | Emergency (ER) | payer OTHER ==
[2021-11-12 10:03] VITALS: BP 131/90; PULSE 90; TEMP 97.9; BMI 30.9
[2021-11-14 00:07] LABS: SARS-CoV-2 NAA Detected (Not Detected)
== END 2021-11-12 10:40 | disposition home or self-care (01) ==
LOC: JER 09:45
DX: R50.9 Fever, unspecified (principal); B34.9 Viral infection, unspecified
CPT/HCPCS: 99283-25; C9803; U0003; U0005